=== PATIENT | male | born 1950 | race Caucasian/White ===

== ENCOUNTER 2021-11-21 09:02 | Emergency (ER) | payer OTHER ==
[~2021-11-21] VITALS: Ht 172.7 cm; Wt 77.1 kg
--- NOTE | 2021-11-21 09:35 | NUR ---
MD at bedside, medical screening exam in progress.
--- NOTE | 2021-11-21 09:40 | NUR ---
Via translation by Jovita (Sudanese): Pt states he has had "stomach" pain for a long time. He has been taking a medication (name unknown) but he stopped taking this medication aboout a week ago because it was not working. Pt states his pain has been worse since yesteray.
[2021-11-21] MEDS ORDERED: MAG HYDROX/AL HYDROX/SIMETH 30 ML LIQUID UDC ONE ×2 (09:55→10:47)
[2021-11-21] MEDS ORDERED: PANTOPRAZOLE SODIUM 40 MG VIAL ONE (09:55)
[2021-11-21] MEDS ORDERED: LIDOCAINE VISCUS 2% 15 ML UDC ONE ×2 (09:56→10:49)
[2021-11-21] MEDS ORDERED: MAG HYDROX/AL HYDROX/SIMETH 30 ML LIQUID UDC PO ONE ×2 (10:00→11:00)
[2021-11-21] MEDS ORDERED: PANTOPRAZOLE SODIUM 40 MG VIAL IV ONE (10:00)
[2021-11-21] MEDS ORDERED: LIDOCAINE VISCUS 2% 15 ML UDC MM ONE ×2 (10:00→11:00)
[2021-11-21 10:01] LABS: HEMATOCRIT 44.9 % (36.7-47.1); MEAN CORPUSCULAR HEMOGLOBIN 30.4 uug (23.8-33.4); MEAN CORPUSCULAR VOLUME 88.7 fL (73.0-96.2); PLATELET COUNT (AUTO) 244 K/uL (152-348)
[2021-11-21 10:10] LABS: CARBON DIOXIDE 29 mmol/L (21-32); CHLORIDE 104 mmol/L (98-107); CREATININE 1.1 mg/dL (0.6-1.3); GLUCOSE 122 mg/dL (74-106); POTASSIUM 4.6 mmol/L (3.5-5.1); UREA NITROGEN, BLOOD 18 mg/dL (7-18)
[2021-11-21 10:18] LABS: ALANINE AMINOTRANSFERASE 40 U/L (16-63); ALKALINE PHOSPHATASE 56 U/L (50-136); ASPARTATE AMINOTRANSFERASE 22 U/L (15-37); BILIRUBIN,DIRECT 0.1 mg/dL (0.0-0.2); BILIRUBIN,TOTAL 0.6 mg/dL (0.2-1.0); LIPASE 83 U/L (73-393); TOTAL PROTEIN, SERUM 7.9 g/dL (6.4-8.2)
[2021-11-21] MEDS ORDERED: MAG355OR18 PO (12:07)
[2021-11-21] MEDS ORDERED: PANT40TA2 PO (12:07)
--- NOTE | 2021-11-21 12:53 | NUR ---
Patient discharged to home in stable condition. Written and verbal after care instructions given. Patient verbalizes understanding of instructions. Stressed follow up or return to ER for worsening s/s.
[2021-11-21 12:54] VITALS: BP 131/80
== END 2021-11-21 12:54 | disposition home or self-care (01) ==
LOC: EDBD 09:02 → ER 09:02
DX: K21.9 Gastro-esophageal reflux disease without esophagitis (principal)
CPT/HCPCS: 36415; 71045; 80048; 80076; 83690; 84484 ×2; 85025; 93005 ×2; 96374; 99285; C9113; A4663